=== PATIENT | female | born 1980 | race African-American/Black ===

== ENCOUNTER 2017-09-07 09:56 | Emergency (ER) | payer MEDICARE, MEDICAID ==
[~2017-09-07] VITALS: Ht 162.6 cm; Wt 89.3 kg
[2017-09-07 09:59] VITALS: Ht 162.6 cm; Wt 89.3 kg
--- NOTE | 2017-09-07 11:44 | ERD ---
ER Documentation Chief Complaint Chief Complaint Pt present with lower back pain since yesterday. No injury/fall reported. HPI 37-year-old female presenting with a chief complaint of back pain. Started last night. No history of trauma. Similar symptoms in the past. Chronic arthritis. Has been diagnosed with sciatica. States that the pain radiates to both legs on the outer aspects. Has taken Percocet with minimal to moderate relief. Patient denies saddle paraesthesia, incontinence, urinary retention, RPND, fever, chills, night sweats, IV drug use, HIV, recent surgery, or difficulty in ambulation. Patient has no other complaints and describes no other associated manifestations. Nursing notes have been reviewed and are consistent with history given. ROS All systems reviewed and are negative except as per history of present illness. PMhx/Soc History of Surgery: Yes (x4 CS) Hx Cardiac Disorders: Yes (HTN, Hpercholesterolemia) Hx Psychiatric Problems: Yes (Bipolar DSO) Hx Miscellaneous Medical Probl: Yes (DM, Fatty liver, Arthritis) Hx Alcohol Use: Yes (ocassionally) Hx Tobacco Use: No Smoking Status: Never smoker Physical Exam Vitals Vital Signs Date Time Temp Pulse Resp B/P Pulse Ox O2 Delivery O2 Flow Rate FiO2 09/07/17 09:59 98.5 60 18 120/57 97 Physical Exam Const: Well-appearing. Mild distress. Back: No midline, flank or CVA tenderness. Negative straight leg raise. Range of motion decreased secondary to pain. Neur: No saddle anesthesia. Neurovascularly intact bilaterally. Normal ambulation. Eyes: Non-injected; No discharge. EOMI and SILVANA bilaterally. Neck: No tenderness. No cervical lymphadenopathy, or masses palpated. Supple ~ No meningismus. Pulm: Good air movement in upper and lower respiratory tracts. Clear to auscultation bilaterally. No dyspnea or stridor. Cardio: Regular rate and rhythm; No murmurs, gallops or rubs auscultated. Radia pulses 2+ bilaterally. No cyanosis noted. Capillary refill less than 2 seconds. Abd: Normal bowel sounds. No palpable mass. MS: Normal motor strength, normal tone with gross examination. Skin: No petechiae or rashes. Good turgor. Psych: Normal Mood and Affect. Procedures/MDM Patient was evaluated and worked up for back pain as described in history and physical examination. No red flags to indicate imaging at this time. Most likely diagnosis is bilateral sciatica. Thus, the treatment plan will include conservative therapy which has been discussed with the patient. At this time I do not suspect cauda equina syndrome, spinal cord compression, aortic involvement, epidural abscess, obstructive nephrolithiasis, pyelonephritis, or other neurovascular compromise. I have spoke with the patient regarding their condition and future management. They have verbally responded that they understand their status and treatment plan. The patients vitals are stable, and their current condition is appropriate for discharge. The patient will be given discharge instructions with return precautions. Departure Diagnosis: Primary Impression: Back pain Back pain location: low back pain Chronicity: acute Back pain laterality: bilateral Sciatica presence: with sciatica Sciatica laterality: bilateral sciatica Qualified Code: M54.42 - Acute bilateral low back pain with bilateral sciatica Condition: Stable Patient Instructions: Back Pain W/ Sciatica Additional Instructions: Follow up with your PCP within the next 1-3 days for a more thorough evaluation and a possible referral to a specialist. Return the the emergency department immediately if symptoms worsen or change. If you have any questions regarding medications, ask your pharmacist or us before you leave. If any adverse reactions occur while taking your medications, discontinue the treatment and return to the emergency department immediately. Take your medications as directed, and complete the entire course of treatment. GENARO IVORY PA-C Sep 07, 2017 11:44
[2017-09-08] MEDS ORDERED: NAPR-260 PO (09:47)
== END 2017-09-07 11:45 | disposition home or self-care (01) ==
LOC: FTE 09:56
DX: M54.42 Lumbago with sciatica, left side (principal); I10 Essential (primary) hypertension; E11.9 Type 2 diabetes mellitus without complications
CPT/HCPCS: 99282

== ENCOUNTER 2017-09-08 09:12 | Emergency (ER) | payer OTHER, MEDICAID ==
[~2017-09-08] VITALS: Ht 162.6 cm; Wt 88.9 kg
[2017-09-08 09:14] VITALS: Ht 162.6 cm; Wt 88.9 kg
[2017-09-08] MEDS ORDERED: KETOROLAC 30 MG INJ IM STA (09:40)
[2017-09-08] MEDS ORDERED: NAPR-260 PO (09:47)
[2017-09-08] MEDS ORDERED: HYDROCODONE/APAP (10/325) TAB PO ONE (10:00)
--- NOTE | 2017-09-08 10:11 | ERD ---
ER Documentation Chief Complaint Chief Complaint pt leydi self with c/o low back pain , has appt with PMD on Sunday, no injury HPI 37 year old female with a history of chronic pain after 4 pregnancies comes in with low back pain worsening after running out of her Percocet yesterday. Other past medical history includes hypertension, hypercholesterolemia, type 2 diabetes, asthma, bipolar disorder. The patient states that since she had 4 pregnancies she has had epidurals and has had chronic back pain and her primary care doctor who is Dr. Maria Fernanda Mcgowan is going to see her on Sunday which is 2 days from now. The plan is to start her on physical therapy because of her chronic pain. She has diffuse pain in the lumbar region, worse on the right side and and is worse with moving, better with sitting or rest. It is achy, moderate, and has not had any radicular symptoms. She denies any paresthesias, loss of bowel bladder function or saddle anesthesia. She denies fevers, chills, nausea , vomiting, diarrhea or flank pain. She denies any history of trauma. ROS All systems reviewed and are negative except as per history of present illness. Medications Home Meds Active Scripts Naproxen* (Naprosyn*) 500 Mg Tablet, 500 MG PO BID Y for PAIN AND/OR INFLAMMATION, #30 TAB Prov:PAM TAMEZ PA-C 09/08/17 Allergies Allergies: Coded Allergies: No Known Allergy (Unverified , 09/08/17) PMhx/Soc History of Surgery: Yes (x4 CS) Hx Cardiac Disorders: Yes (HTN, Hpercholesterolemia) Hx Psychiatric Problems: Yes (Bipolar DSO) Hx Miscellaneous Medical Probl: Yes (DM, Fatty liver, Arthritis) Hx Alcohol Use: Yes (ocassionally) Hx Substance Use: No Hx Tobacco Use: No Smoking Status: Former smoker Physical Exam Vitals Vital Signs Date Time Temp Pulse Resp B/P Pulse Ox O2 Delivery O2 Flow Rate FiO2 09/08/17 09:14 97.9 69 16 118/73 98 Physical Exam \General: Well-developed, well-nourished. The patient appears in no acute distress. HEENT: Head is normocephalic, atraumatic. No scleral icterus. Neck: Supple. Nontender. Lungs: Clear to auscultation. Normal air movement. Heart: Regular rate and rhythm. S1 and S2 are normal. No murmurs, gallops, or rubs. Abdomen: Soft, nontender, nondistended. Bowel sounds are normoactive. Back: There is no midline tenderness, no depressions, step-offs. The patient has paraspinal tenderness at L4-L5. Strength lower extremities 5 out of 5 bilaterally. Extremities: No clubbing or cyanosis. Normal pulses. Moving extremities x 4. No weakness. Neurologic: Alert and oriented 3. No focal deficits. Skin: Normal turgor. No rash or lesions. Results 24 hrs Current Medications Medications (Trade) Dose Ordered Sig/Robert Route PRN Reason Start Time Stop Time Status Last Admin Dose Admin Ketorolac Tromethamine (Toradol) 30 mg ONCE STAT IM 09/08/17 09:40 09/08/17 09:41 DC 09/08/17 09:57 Acetaminophen/ Hydrocodone Bitart ([place] (10/325)) 1 tab ONCE ONCE PO 09/08/17 10:00 09/08/17 10:01 DC 09/08/17 09:57 Procedures/MDM 37-year-old female comes in with an acute onset of her back pain exacerbated after she states that her Percocet has run out. The patient's presentation is most consistent with acute on chronic process. There are no signs of cauda equina, epidural abscess, discitis, fracture. She is neurovascularly intact as well without any radicular symptoms. Symptoms in the emergency department we treated with Toradol, as well as [place]. I have explained her drug policy in the emergency department and she understands and further refills for narcotics are to be done through her primary doctor who is Dr. Mcgowan. Patient's spine symptoms have stabilized while they have been evaluated in the department and are appropriate for outpatient work up. No evidence of cauda equina, cord compression, infiltrative, or infectious etiology. Departure Diagnosis: Primary Impression: Back pain Condition: Good Patient Instructions: Back Pain (Acute Or Chronic) PAM TAMEZ PA-C Sep 08, 2017 10:11
== END 2017-09-08 10:29 | disposition home or self-care (01) ==
LOC: FTE 09:12
DX: M54.5 Low back pain (principal); I10 Essential (primary) hypertension; E11.9 Type 2 diabetes mellitus without complications; Z87.891 Personal history of nicotine dependence
CPT/HCPCS: 96372; 99284; J1885

== ENCOUNTER 2017-09-13 20:48 | Emergency (ER) | payer OTHER ==
[~2017-09-13] VITALS: Ht 160 cm; Wt 90.0 kg
[~2017-09-13 20:48] MED LIST: NAPR-260 PO
[2017-09-13 21:20] VITALS: Ht 160 cm; Wt 90.0 kg
--- NOTE | 2017-09-13 22:03 | ERD ---
ER Documentation Chief Complaint Chief Complaint PYSCH MED REFILL HPI 37-year-old female here requesting medication refill for her psychiatric medications. No suicidal or homicidal ideations. No other complaints. ROS All systems reviewed and are negative except as per history of present illness. Medications Home Meds Active Scripts Naproxen* (Naprosyn*) 500 Mg Tablet, 500 MG PO BID Y for PAIN AND/OR INFLAMMATION, #30 TAB Prov:PAM TAMEZ PA-C 09/08/17 Allergies Allergies: Coded Allergies: No Known Allergy (Unverified , 09/13/17) PMhx/Soc History of Surgery: Yes (x4 CS) Hx Cardiac Disorders: Yes (HTN, Hpercholesterolemia) Hx Psychiatric Problems: Yes (Bipolar DSO) Hx Miscellaneous Medical Probl: Yes (DM, Fatty liver, Arthritis) Hx Alcohol Use: Yes (ocassionally) Hx Substance Use: No Hx Tobacco Use: No Smoking Status: Never smoker FmHx Family History: No diabetes Physical Exam Vitals Vital Signs Date Time Temp Pulse Resp B/P Pulse Ox O2 Delivery O2 Flow Rate FiO2 09/13/17 21:20 97.8 69 20 123/82 99 Physical Exam Const: [] Head: Atraumatic Eyes: Normal Conjunctiva ENT: Normal External Ears, Nose and Mouth. Neck: Full range of motion..~ No meningismus. Resp: Clear to auscultation bilaterally Cardio: Regular rate and rhythm, no murmurs Procedures/MDM Patient here for medication refill. She was given refills of her psych medications. Patients is alert, oriented, well appearing, and in no distress with normal vital signs. There is no fever, tachycardia, or tachypnea. Patient counseled regarding my diagnostic impression and care plan. Prior to discharge all questions answered. Pt agrees with treatment plan and understands strict return precautions. Pt is instructed to follow up with primary care provider within 24-48 hours. Precautionary instructions provided including instructions to return to the ER if not improving or for any worsening or changing symptoms or concerns. Departure Diagnosis: Primary Impression: Encounter for medication refill Condition: Stable SAMANTA AUGUSTE PA-C Sep 13, 2017 22:03
[2017-09-13] MEDS ORDERED: TOPI25CA2 PO (22:05)
[2017-09-13] MEDS ORDERED: ESCI20TA PO (22:07)
[2017-09-13] MEDS ORDERED: RISP4TAB2 PO (22:07)
[2017-09-13] MEDS ORDERED: BENZ2TAB37 PO (22:07)
== END 2017-09-13 22:44 | disposition home or self-care (01) ==
LOC: FTE 20:48
DX: Z76.0 Encounter for issue of repeat prescription (principal); I10 Essential (primary) hypertension; E11.9 Type 2 diabetes mellitus without complications
CPT/HCPCS: 99281